=== PATIENT | female | born 2000 | race Caucasian/White ===

== ENCOUNTER 2024-03-09 04:06 | Day surgery (SDC) | payer OTHER ==
[2024-03-04 18:58] VITALS: BMI 19.6
[2024-03-09] MEDS ORDERED: LIDOCAINE HCL 1%, 10 MG/ML (20ML VIAL) ONE (08:12)
[2024-03-09] MEDS ORDERED: HEPARIN NA (PORCINE) 5,000 UNITS/ML 1ML VIAL ONE (08:13)
[2024-03-09] MEDS ORDERED: SODIUM BICARBONATE 8.4% 50 MEQ/50 ML DISP.SYRIN ONE ×2 (08:33→08:35)
[2024-03-09] MEDS ORDERED: ONDANSETRON 4 MG/2 ML VIAL IVPUSH PRN (10:03)
[2024-03-09] MEDS ORDERED: oxyCODONE HCL 5 MG TABLET PO PRN (10:03)
[2024-03-09] MEDS ORDERED: MIDAZOLAM HCL 2 MG/2 ML SINGLE DOSE VIAL ONE (10:15)
[2024-03-09] MEDS ORDERED: PROPOFOL 20 ML ONE (10:15)
[2024-03-09] MEDS ORDERED: ceFAZolin SODIUM 1 GM VIAL ONE (10:15)
[2024-03-09] MEDS ORDERED: DEXAMETHASONE SOD PHOSPHATE 4 MG/1 ML VIAL ONE (10:15)
[2024-03-09] MEDS: ceFAZolin SODIUM 1 GM VIAL IVPB ONE (10:27)
[2024-03-09] MEDS: HEPARIN NA (PORCINE) 5,000 UNITS/ML 1ML VIAL IV ONE ×2 (10:42)
[2024-03-09] MEDS: LIDOCAINE HCL 1%, 10 MG/ML (20ML VIAL) INF ONE ×2 (10:42)
[2024-03-09] MEDS ORDERED: LIDOCAINE HCL 2% JELLY 11 ML TP ONE (10:52)
[2024-03-09] MEDS: LACTATED RINGERS SOLUTION 1,000 ML IV SCH (11:10)
[2024-03-09] MEDS ORDERED: ACETAMINOPHEN 500 MG TABLET (FP) ONE (12:30)
[2024-03-09] MEDS: ACETAMINOPHEN 500 MG TABLET (FP) PO ONE (12:45)
[2024-03-09 13:47] VITALS: BP 102/79; PULSE 93; RESP 16; TEMP 98.7
== END 2024-03-09 13:50 | disposition home or self-care (01) ==
LOC: JASU-SURG 04:06
PROVIDERS: ATTEND Urology
PROC: 0T7B8ZZ Dilation of Bladder, Via Natural or Artificial Opening Endoscopic (ICD-10-PCS; principal; 2024-03-09 09:30)
PROC: 3E0K8GC Introduction of Other Therapeutic Substance into Genitourinary Tract, Via Natural or Artificial Opening Endoscopic (ICD-10-PCS; 2024-03-09 09:30)
DX: N30.10 Interstitial cystitis (chronic) without hematuria (principal); N32.81 Overactive bladder; R10.2 Pelvic and perineal pain
CPT/HCPCS: 81025; 94760; J1644

== ENCOUNTER 2024-11-21 05:38 | Day surgery (SDC) | payer OTHER ==
[2024-11-16 15:21] VITALS: BMI 20.7
[2024-11-21 06:42] VITALS: RESP 18
[2024-11-21] MEDS ORDERED: oxyCODONE HCL 5 MG TABLET PO PRN ×2 (06:54)
[2024-11-21] MEDS ORDERED: ONDANSETRON 4 MG/2 ML VIAL IVPUSH PRN (06:54)
[2024-11-21] MEDS ORDERED: LACTATED RINGERS SOLUTION 1,000 ML IV SCH (07:00)
[2024-11-21] MEDS ORDERED: MIDAZOLAM HCL 2 MG/2 ML SINGLE DOSE VIAL ONE (07:44)
[2024-11-21] MEDS ORDERED: PROPOFOL 20 ML ONE (07:54)
[2024-11-21] MEDS: ceFAZolin SODIUM 1 GM VIAL IVPB ONE (08:00)
[2024-11-21] MEDS ORDERED: ceFAZolin SODIUM 1 GM VIAL ONE (08:02)
[2024-11-21] MEDS ORDERED: LIDOCAINE HCL 2% JELLY 11 ML TP ONE ×2 (08:17)
[2024-11-21] MEDS ORDERED: ONDANSETRON 4 MG/2 ML VIAL ONE (08:24)
[2024-11-21] MEDS: ACETAMINOPHEN 1000 MG/100 ML BAG IVPB ONE (10:01)
[2024-11-21 12:09] VITALS: BP 118/67; PULSE 63; TEMP 97.6
== END 2024-11-21 12:00 | disposition home or self-care (01) ==
LOC: JASU-SURG 05:38
PROVIDERS: ATTEND Urology
PROC: 3E0K8GC Introduction of Other Therapeutic Substance into Genitourinary Tract, Via Natural or Artificial Opening Endoscopic (ICD-10-PCS; principal; 2024-11-21 07:30)
PROC: 0T7B8ZZ Dilation of Bladder, Via Natural or Artificial Opening Endoscopic (ICD-10-PCS; 2024-11-21 07:30)
DX: N32.81 Overactive bladder (principal); N30.10 Interstitial cystitis (chronic) without hematuria; N35.92 Unspecified urethral stricture, female
CPT/HCPCS: 81025; 94760